=== PATIENT | male | born 1990 | race American Indian/Alaskan Native ===

== ENCOUNTER 2020-04-02 11:52 | Emergency (ER) | payer SELFPAY ==
[2020-04-02 12:24] VITALS: BP 143/98
[2020-04-02] MEDS ORDERED: SODIUM CHLORIDE 0.9% 1000 ML 1,000 ML IV ONE (12:55)
[2020-04-02] MEDS ORDERED: ONDANSETRON 4 MG/2 ML INJ IV ONE (12:55)
--- NOTE | 2020-04-02 13:02 | Event Note ---
ED Screening Note Date of service: 04/02/20 Time: 12:53 ED Screening Note: 29 yr old male presents to the ER today complaining of nausea and vomiting since March 06. He states that he vomits each time he tries to eat or drink. He reports associated lightheadedness, and feeling like he about to pass out and left upper quadrant abdominal pain. He has been to to ER in the past couple weeks for his symptoms. He states that he diagnosed him with gastritis. Was prescribed Zofran and Pepcid but he states that did not really helping and he cannot keep any of the pills down. He states they did do a CT of his abdomen at one of the ER visits and it did not show anything acute. Medical history: Diabetes (patient denies history of DKA or gastroparesis); smokes marijuana This initial assessment/diagnostic orders/clinical plan/treatment(s) is/are subject to change based on patients health status, clinical progression and re- assessment by fellow clinical providers in the ED. Further treatment and workup at subsequent clinical providers discretion. Patient/guardian urged not to elope from the ED as their condition may be serious if not clinically assessed and managed. Initial orders include: Abdominal pain order set including EKG and a troponin
[2020-04-02 16:01] LABS: Hematocrit 48.6 % (35.5-45.6); Hemoglobin 16.5 gm/dl (11.8-15.2); Mean Corpuscular HGB Conc 34 % (32-34); Mean Corpuscular Volume 85 fl (84-94); Platelet Count 351 K/mm3 (140-440); Red Blood Count 5.72 M/mm3 (3.65-5.03); Red Cell Distribution Width 13.6 % (13.2-15.2)
[2020-04-02 16:24] LABS: Alanine Aminotransferase 13 units/L (7-56); Albumin 4.6 g/dL (3.9-5); BUN/Creatinine Ratio 9; Blood Urea Nitrogen 8 mg/dL (9-20); Calcium 10.1 mg/dL (8.4-10.2); Hemolysis Index 6
[2020-04-02 16:25] LABS: Bilirubin,Direct < 0.2 mg/dL (0-0.2)
[2020-04-02 16:53] LABS: Total Cells Counted 100
[2020-04-02 16:54] LABS: Anisocytosis RARE; Giant Platelets Few
== END 2020-04-03 00:18 | disposition left against medical advice (07) ==
LOC: ED 11:52
DX: R42 Dizziness and giddiness (principal); Z53.21 Procedure and treatment not carried out due to patient leaving prior to being seen by health care provider
CPT/HCPCS: 36415; 80048; 80076; 82962; 83690; 84484; 85007; 85025